=== PATIENT | male | born 1945 | race Caucasian/White ===

== ENCOUNTER 2020-07-15 10:02 | Emergency (ER) | payer OTHER ==
[2020-07-15 10:27] VITALS: TEMP 98; BMI 34.8
--- NOTE | 2020-07-15 10:36 | PDOC ---
History of Present Illness <Dianna Aguayo - Last Filed: 07/15/20 13:39> - History of Present Illness Initial Comments: 07/15/20 10:33 75 M with hx of HTN, DM , CKD stage 3, angioplasty 2014 presented for right shoulder pain s/p fall. Patient walked with a cane. This morning, he fell down on his right shoulder believing the sockets are out of place. Denied head hitting, LOC, neck pain, change of sensation. He currently complained of right shoulder pain, sharp. Didn't take any pain meds. PMHX: as in HPI PSHX: see above Meds: Allergies: none Tob:none Etoh: none Rec drugs:none PCP: claudia bowman Braze Operator: accident report clerk and son by his side. ROS GENERAL/CONSTITUTIONAL: No fever or chills. No weakness. HEAD, EYES, EARS, NOSE AND THROAT: No change in vision. No ear pain or discharge. No sore throat. CARDIOVASCULAR: No chest pain or shortness of breath RESPIRATORY: No cough, wheezing, or hemoptysis. GASTROINTESTINAL: No nausea, vomiting, diarrhea or constipation. GENITOURINARY: No dysuria, frequency, or change in urination. MUSCULOSKELETAL: Right shoulder pain. No neck or back pain. SKIN: No rash NEUROLOGIC: No headache, vertigo, loss of consciousness, or change in strength/sensation. ENDOCRINE: No increased thirst. No abnormal weight change HEMATOLOGIC/LYMPHATIC: No anemia, easy bleeding, or history of blood clots. ALLERGIC/IMMUNOLOGIC: No hives or skin allergy. PE GENERAL: Awake, alert, and fully oriented, in no acute distress HEAD: No signs of trauma, normocephalic, atraumatic EYES: PERRLA, EOMI, sclera anicteric, conjunctiva clear ENT: Auricles normal inspection, hearing grossly normal, nares patent, oropharynx clear without exudates. Moist mucosa NECK: Normal ROM, supple, no lymphadenopathy, JVD, or masses LUNGS: No distress, speaks full sentences, clear to auscultation bilaterally HEART: Regular rate and rhythm, normal S1 and S2, no murmurs, rubs or gallops, peripheral pulses normal and equal bilaterally. ABDOMEN: Soft, nontender, normoactive bowel sounds. No guarding, no rebound. No masses EXTREMITIES : Normal radial pulses. Right shoulder is out socket. Step off noticed, no erythema. NEUROLOGICAL: Cranial nerves II through XII grossly intact. Normal speech, normal gait, no focal sensorimotor deficits SKIN: Warm, Dry, normal turgor, no rashes or lesions noted 07/15/20 12:49 07/15/20 14:13 <Anselmo Haddad - Last Filed: 07/15/20 14:14> - General Chief Complaint: Injury Stated Complaint: FALL Past History <Dianna Aguayo - Last Filed: 07/15/20 13:39> - Medical History COPD: No Diabetes: Yes Hypercholesterolemia: Yes - Surgical History Cardiac Surgery: Yes (stent x1) - Psycho-Social/Smoking History Smoking History: Never smoked - Substance Abuse Hx (Audit-C & DAST Scrn) In the last yr the pt used illegal drug/Rx for NonMed reason: No Score: Yes response is considered Positive: 0 Screen Result (Positive result requires Nsg. DAST-10): Negative <Anselmo Haddad - Last Filed: 07/15/20 14:14> - Medical History Allergies/Adverse Reactions: Allergies Allergy/AdvReac Type Severity Reaction Status Date / Time No Known Allergies Allergy Verified 07/15/20 10:13 Home Medications: Ambulatory Orders Atorvastatin Calcium 40 mg PO HS 07/15/20 Glyburide/Metformin HCl [Glyburide-Metformin 5-500 mg] 1 each PO ASDIR 07/15/20 Ramipril [Altace] 5 mg PO DAILY 07/15/20 *Physical Exam - Vital Signs Last Vital Signs Temp Pulse Resp BP Pulse Ox 98 F 67 15 145/74 100 07/15/20 10:05 07/15/20 13:01 07/15/20 13:01 07/15/20 13:01 07/15/20 13:01 <Dianna Aguayo - Last Filed: 07/15/20 13:39> - Vital Signs Last Vital Signs Temp Pulse Resp BP Pulse Ox 98 F 70 18 139/65 100 07/15/20 10:05 07/15/20 10:05 07/15/20 10:05 07/15/20 10:05 07/15/20 10:05 <Anselmo Haddad - Last Filed: 07/15/20 14:14> Procedures - Joint Reduction Right Joint Reduction Site: right: Anterior Dislocation Pre-Procedure NV Exam: normal Conscious Sedation: Yes Reduction Attempts: 1 Procedure: Traction Counter Traction Post-Procedure NV Exam: normal Complications: No Splint: Yes Immobilized: No <Anselmo Haddad - Last Filed: 07/15/20 14:14> ED Treatment Course - Medications Given in the ED: ED Medications Discontinued Medications Generic Name Dose Route Start Last Admin Trade Name Randy PRN Reason Stop Dose Admin Ketamine HCl 150 mg 07/15/20 12:34 07/15/20 12:15 Ketalar - IVPUSH 07/15/20 12:35 150 mg ONCE ONE Administration <Dianna Aguayo - Last Filed: 07/15/20 13:39> Medical Decision Making - Medical Decision Making 07/15/20 12:57 75 M with HTN, DM, CKD stage 3 presented here for right shoulder dislocation s/p fall. three view of xray on the shoulders was ordered, however, 2 views was obtained. Xray showed deformed shoulder with comminuted clavicle fracture with no widened AC/ elevated hummerus. Consulted ORtho. Go ahead with reduction. F/u on Friday. Conscious sedation paper is obtained. Used 150mg ketamine. Conscious sedation is done with no complication . Reduction is done with one attempt. Xray is reshooted. sling is put. Called Dr. Hughes and updated. Patient is safe to d/c and follow up with ortho. 07/15/20 12:58 07/15/20 13:06 <Anselmo Haddad - Last Filed: 07/15/20 14:14> Discharge <OlivierDianna - Last Filed: 07/15/20 13:39> - Discharge Information Problems reviewed: Yes <Anselmo Haddad - Last Filed: 07/15/20 14:14> - Discharge Information Condition: Improved Disposition: HOME - Follow up/Referral Referrals: Claudia Paulino MD [Primary Care Provider] - Manjinder Aponte MD [Staff Physician] - Juan Quinn MD [Staff Physician] - - Patient Discharge Instructions Patient Printed Discharge Instructions: DI for Shoulder Dislocation, DI for AC Joint Separation Additional Instructions: Discharge Instructions: You were seen in the emergency department for an injury to your shoulder. You were found to have a dislocation of your shoulder as well as a broken clavicle (collar bone). Your shoulder was reduced (put back in place) in the emergency department. You had a sling placed to help the shoulder heal. Home Care: - You will most likely have pain, swelling and bruising for at least the next few weeks. These should improve over time. - Keep your sling in place - Keep the sling dry. You may cover the sling with a plastic bag, rubber band over the end, to shower. - Apply ice as much as possible for the next 2-3 days. This will help reduce pain and swelling. - Use ibuprofen (Advil or Motrin) 400mg or acetaminophen (Tylenol) 650-1000mg every 6 hours as needed for pain. These may be alternated every 3 hours if needed for severe pain. - If your arm or hand become swollen or feel numb, return to the ED. Follow Up: - You need to follow up with orthopedics within the next 7 days for evaluation of your fracture and dislocation. You have been given contact information for Dr Aponte or Dr Quinn. Call as soon as possible to schedule an appointment. - Seek immediate care if you have severe pain, your hand/arm become numb, your fingers are cold or blue, you have severe swelling or redness, or you have any other medical emergency.
--- NOTE | 2020-07-15 11:23 | PDOC ---
Documentation entered by Suly Harvey SCRIBE, acting as scribe for Magalis Schwarz MD. Magalis Schwarz MD: This documentation has been prepared by the Candice billingsley Brenda, SCRIBE, under my direction and personally reviewed by me in its entirety. I confirm that the documentation accurately reflects all work, treatment, procedures, and medical decision making performed by me. Attending Attestation - Resident Resident Name: Anselmo Haddad - ED Attending Attestation I have performed the following: I have examined & evaluated the patient, The case was reviewed & discussed with the resident, I agree w/resident's findings & plan, Exceptions are as noted - HPI HPI: 07/15/20 11:02 The patient is a 75 year old male with a significant PMH of HTN, DM and Angioplasty (2014) who presents to the ED for evaluation of right shoulder pain s/p mechanical fall off his couch. He notes that upon fall he injured his right shoulder, stating that it feels out of its' socket. States that this just happened. Patient walks with a cane at baseline. The patient denies LOC or head trauma. Denies any numbness/tingling or changes in sensation. Allergies: NKA PCP: Susan Paulino - Physicial Exam PE: 07/15/20 11:07 GENERAL: nontoxic-appearing, a bit uncomfortable, A/Ox4, no distress, answers questions appropriately, non-Romanian speaking primarily and son is present to assist translation HEENT: PERRLA, EOMI, moist mucous membranes NECK/BACK: no midline ttp, no spinal stepoff or deformity, no hematoma, full ROM, neck supple CARDIOVASCULAR: regular rate/rhythm, no MGR, strong peripheral pulses, capillary refill <2 seconds, extremities wwp, no edema LUNGS/RESPIRATORY: no respiratory distress, CTAB GI/ABDOMEN: symmetric blld-sy-[id number], normoactive BS, soft, no ttp, no midline pulsatile masses : no CVA tenderness MSK/EXTREMITIES: right shoulder deformity, RUE held in adduction and internal rotation and is in field sling, no muscle atrophy, no acute deformity, distal cap refill <2 seconds and radial and ulnar pulses 2+ and sensation/motor intact. No numbness overlying deltoid. SKIN: warm and dry, no pallor, no jaundice, no rash, no pathologic-appearing bruising, no skin breakdown, no cuts, no lesions NEUROLOGICAL: GCS 15, CN II-XII grossly intact, 5/5 strength proximally and distally, no facial droop - Medical Decision Making 75YOM with fall from cough p/w right shoulder deformity. Initial Vital Signs Temp Pulse Resp BP Pulse Ox 98 F 70 18 139/65 100 07/15/20 10:05 07/15/20 10:05 07/15/20 10:05 07/15/20 10:05 07/15/20 10:05 Most likely anterior shoulder dislocation, possible fracture as well. Unlikely to be simple soft tissue injury or muscle strain/sprain given the clinical deformity. Unlikely simple AC separation although this may be present. Provider Orders Category Date Time Status Acetaminophen [Tylenol -] Medication 07/15/20 13:40 Discontinued 975 mg PO ONCE ONE Ketamine HCl [Ketalar -] Medication 07/15/20 12:34 Discontinued 150 mg IVPUSH ONCE ONE Ondansetron Injection [Zofran Injection] Medication 07/15/20 13:50 Discontinued 4 mg IVPUSH ONCE ONE SHOULDER-RIGHT [RAD] Stat Radiology 07/15/20 10:36 Completed SHOULDER-RIGHT [RAD] Stat Radiology 07/15/20 12:25 Completed Reminder: new phy cons See Order Reminders 07/15/20 11:28 Ordered Medications Discontinued Medications Generic Name Dose Route Start Last Admin Trade Name Freq PRN Reason Stop Dose Admin Acetaminophen 975 mg 07/15/20 13:40 07/15/20 13:49 Tylenol - PO 07/15/20 13:41 975 mg ONCE ONE Administration Ketamine HCl 150 mg 07/15/20 12:34 07/15/20 12:15 Ketalar - IVPUSH 07/15/20 12:35 150 mg ONCE ONE Administration Ondansetron HCl 4 mg 07/15/20 13:50 07/15/20 13:53 Zofran Injection IVPUSH 07/15/20 13:51 4 mg ONCE ONE Administration RAD/SHOULDER-RIGHT Right shoulder: Fall. Pain. 2 views of the right shoulder reveal a deformed shoulder with comminuted distal right clavicular fracture, no sign of widening of the AC joint and elevated humeral head which may indicate a rotator cuff injury. Further imaging with CT may be of help along with orthopedic consultation. On phone consult with Ortho, resident Dr. Haddad discusses the case and imaging findings and Ortho advises reduction despite the clavicle fxr, and f/u in clinic as outpatient if good result achieved. The patient's right shoulder is reduced with puisztic-rptigqbzpnbpede-duvmziyv rotation after 150 mg IV push Ketamine conscious sedation, which the patient tolerated very well. He is subsequently placed in a sling, is neurovascularly intact with 2+ radial and ulnar pulses and no numbness to any portion of the RUE or shoulder. RAD/SHOULDER-RIGHT ADDENDUM ADDENDUM #1 There are arthritic changes present. ORIGINAL REPORT Right shoulder: Post reduction 2 views of the right shoulder have been submitted. The humerus appears in better alignment with the glenoid. Again noted is the comminuted distal clavicular fracture. Orthopedic follow-up needed. Reported By: Vincent Reza MD 07/15/20 1323 Right shoulder: Post reduction 2 views of the right shoulder have been submitted. The humerus appears in better alignment with the glenoid. Again noted is the comminuted distal clavicular fracture. Orthopedic follow-up needed. The patient is observed for >1 hour after returning to baseline from ketamine. He did have some nausea/NBNB vomiting subsequently but was given Zofran with good result. He is appropriate for discharge home with close outpatient follow- up. Is given ortho referral information and we do have a discussion with the patient and his son about the importance of keeping the sling on and following up with both Ortho and PCP in the next 2 days. Specific return precautions are discussed. Last Vital Signs Temp Pulse Resp BP Pulse Ox 98 F 64 18 139/69 100 07/15/20 10:05 07/15/20 13:55 07/15/20 13:55 07/15/20 13:55 07/15/20 13:55 Discharge - Discharge Information Problems reviewed: Yes Clinical Impression/Diagnosis: Shoulder dislocation Qualifiers: Encounter type: initial encounter Laterality: right Qualified Code(s): S43.004A - Unspecified dislocation of right shoulder joint, initial encounter Condition: Improved Disposition: HOME - Admission No - Follow up/Referral Referrals: Susan Paulino MD [Primary Care Provider] - Manjinder Aponte MD [Staff Physician] - Juan Quinn MD [Staff Physician] - - Patient Discharge Instructions Patient Printed Discharge Instructions: DI for Shoulder Dislocation, DI for AC Joint Separation Additional Instructions: Discharge Instructions: You were seen in the emergency department for an injury to your shoulder. You were found to have a dislocation of your shoulder as well as a broken clavicle (collar bone). Your shoulder was reduced (put back in place) in the emergency department. You had a sling placed to help the shoulder heal. Home Care: - You will most likely have pain, swelling and bruising for at least the next few weeks. These should improve over time. - Keep your sling in place - Keep the sling dry. You may cover the sling with a plastic bag, rubber band over the end, to shower. - Apply ice as much as possible for the next 2-3 days. This will help reduce pain and swelling. - Use ibuprofen (Advil or Motrin) 400mg or acetaminophen (Tylenol) 650-1000mg every 6 hours as needed for pain. These may be alternated every 3 hours if needed for severe pain. - If your arm or hand become swollen or feel numb, return to the ED. Follow Up: - You need to follow up with orthopedics within the next 7 days for evaluation of your fracture and dislocation. You have been given contact information for Dr Aponte or Dr Quinn. Call as soon as possible to schedule an appointment. - Seek immediate care if you have severe pain, your hand/arm become numb, your fingers are cold or blue, you have severe swelling or redness, or you have any other medical emergency. - Post Discharge Activity
[2020-07-15] MEDS ORDERED: KETAMINE HCL 200 MG/20 ML VIAL IVPUSH ONE (12:34)
[2020-07-15] MEDS ORDERED: ACETAMINOPHEN 325 MG TABLET (FP) PO ONE (13:40)
[2020-07-15] MEDS ORDERED: ONDANSETRON 4 MG/2 ML VIAL IVPUSH ONE (13:50)
[2020-07-15 15:23] VITALS: BP 139/69; PULSE 64
== END 2020-07-15 14:25 | disposition home or self-care (01) ==
LOC: SUPCPDRO 10:02 → JER 10:02
PROC: 0RSJXZZ Reposition Right Shoulder Joint, External Approach (ICD-10-PCS; principal; 2020-07-15)
PROC: 3E033GC Introduction of Other Therapeutic Substance into Peripheral Vein, Percutaneous Approach (ICD-10-PCS; 2020-07-15)
DX: S43.004A Unspecified dislocation of right shoulder joint, initial encounter (principal)
CPT/HCPCS: 73030-TC-RT-FY; 99284-25

== ENCOUNTER 2020-12-05 00:59 | Emergency (ER) | payer OTHER ==
[2020-12-05 01:20] VITALS: BMI 26.4
[2020-12-05 04:24] LABS: POTASSIUM 4.4 mmol/L (3.5-5.1)
[2020-12-05 04:24] LABS: EPI CELLS 3 /uL (0-25.1); HYALINE CASTS 4 /uL (0-3.1); URINE APPEARANCE CLOUDY; URINE BACTERIA 3421 /uL (0-1359); URINE BILIRUBIN NEGATIVE (NEGATIVE); URINE COLOR YELLOW; URINE GLUCOSE (UA) NEGATIVE (NEGATIVE); URINE KETONE NEGATIVE (NEGATIVE); URINE LEUK ESTERASE 3+ (NEGATIVE); URINE NITRITE NEGATIVE (NEGATIVE); URINE PROTEIN NEGATIVE (NEGATIVE); URINE RBC 44 /uL (0-23.9); URINE UROBILINOGEN 0.2 mg/dL (0.2-1.0); URINE WBC 549 /uL (0-25.8)
[2020-12-05 04:26] LABS: CALCIUM 9.3 mg/dL (8.5-10.1)
[2020-12-05 04:27] LABS: ALBUMIN 3.7 g/dl (3.4-5.0); BLOOD UREA NITROGEN 22.7 mg/dL (7-18)
[2020-12-05 04:30] LABS: CREATININE 1.2 mg/dL (0.55-1.3)
[2020-12-05 04:32] LABS: BILIRUBIN,TOTAL 0.5 mg/dL (0.2-1); TOT PROT 7.4 g/dl (6.4-8.2)
[2020-12-05 08:23] LABS: HEMATOCRIT 35.2 % (35.4-49); HEMOGLOBIN 11.7 GM/dL (11.7-16.9); MCH 26.2 pg (25.7-33.7); MCHC 33.2 g/dl (32.0-35.9); MEAN CELL VOLUME 78.8 fl (80-96); MEAN PLT VOLUME 9.4 fl (7.5-11.1); NEUT % 68.5 % (42.8-82.8); PLATELET COUNT 201 K/MM3 (134-434); RBC 4.46 M/mm3 (4.00-5.60); RDW 14.8 % (11.9-15.9); WHITE BLOOD COUNT 10.8 K/mm3 (4.0-10.0)
[2020-12-05 08:24] LABS: BASO % 1.1 % (0-2.0); EOS % 1.6 % (0-4.5); LYMPH % 21.6 % (8-40); MONO % 7.2 % (3.8-10.2)
[2020-12-05 12:24] VITALS: BP 123/67; PULSE 68; TEMP 98.5
== END 2020-12-05 13:52 | disposition home or self-care (01) ==
LOC: JER 00:59
DX: N30.01 Acute cystitis with hematuria (principal)
CPT/HCPCS: 36415; 80053; 81003; 85025; 87086; 87186; 99283-25

== ENCOUNTER 2022-04-25 22:38 | Emergency (ER) | payer OTHER ==
[2022-04-25 22:43] VITALS: BMI 24.3
[2022-04-26 03:53] LABS: EPI CELLS >36 /uL (0-25.1); HYALINE CASTS 3 /uL (0-3.1); PH,URINE 8.5 (5.0-8.0); URINE APPEARANCE CLOUDY; URINE BACTERIA 8156 /uL (0-1359); URINE BILIRUBIN NEGATIVE (NEGATIVE); URINE COLOR YELLOW; URINE GLUCOSE (UA) NEGATIVE (NEGATIVE); URINE KETONE NEGATIVE (NEGATIVE); URINE LEUK ESTERASE 3+ (NEGATIVE); URINE NITRITE POSITIVE (NEGATIVE); URINE PROTEIN 1+ (NEGATIVE); URINE RBC 4 /uL (0-23.9); URINE UROBILINOGEN 0.2 mg/dL (0.2-1.0); URINE WBC 58 /uL (0-25.8)
[2022-04-26] MEDS ORDERED: CEFTRIAXONE 1 GM in DEXTROSE 5%-WATER - 100 ML IVPB ONE (04:05)
[2022-04-26] MEDS ORDERED: CEFTRIAXONE 1 GM/50 ML BAG ONE (04:43)
[2022-04-26 05:14] LABS: BASO % 0.3 % (0-2.0); EOS % 0.5 % (0-4.5); HEMOGLOBIN 12.9 GM/dL (11.7-16.9); LYMPH % 15.6 % (8-40); MCH 26.1 pg (25.7-33.7); MCHC 33.1 g/dl (32.0-35.9); MEAN CELL VOLUME 78.9 fl (80-96); MEAN PLT VOLUME 8.6 fl (7.5-11.1); NEUT % 78.6 % (42.8-82.8); PLATELET COUNT 229 10^3/uL (134-434); RBC 4.94 M/mm3 (4.00-5.60); RDW 14.6 % (11.9-15.9); WHITE BLOOD COUNT 11.9 K/mm3 (4.0-10.0)
[2022-04-26 05:45] LABS: ALBUMIN 4.2 g/dl (3.4-5.0); BLOOD UREA NITROGEN 18.7 mg/dL (7-18); CALCIUM 9.6 mg/dL (8.5-10.1)
[2022-04-26 05:48] LABS: CREATININE 1.1 mg/dL (0.55-1.3)
[2022-04-26 05:50] LABS: BILIRUBIN,TOTAL 0.8 mg/dL (0.2-1); TOT PROT 8.2 g/dl (6.4-8.2)
[2022-04-26 05:56] VITALS: BP 135/70; PULSE 78; TEMP 98.6
[2022-04-26 07:42] LABS: URINE CRYSTALS MANY /hpf
== END 2022-04-26 10:16 | disposition home or self-care (01) ==
LOC: JER 22:38
PROC: 3E033GC Introduction of Other Therapeutic Substance into Peripheral Vein, Percutaneous Approach (ICD-10-PCS; principal; 2022-04-25)
DX: R33.9 Retention of urine, unspecified (principal)
CPT/HCPCS: 36415; 80053; 81003; 85025; 87086; 87186; 96365; 99284-25

== ENCOUNTER 2022-04-29 19:38 | Inpatient (IN) | payer OTHER ==
[2022-04-29 22:20] LABS: EOS % 3.9 % (0-4.5); HEMATOCRIT 37.2 % (35.4-49); HEMOGLOBIN 12.2 GM/dL (11.7-16.9); LYMPH % 33.5 % (8-40); MCH 26.3 pg (25.7-33.7); MCHC 32.7 g/dl (32.0-35.9); MEAN CELL VOLUME 80.3 fl (80-96); MEAN PLT VOLUME 8.5 fl (7.5-11.1); MONO % 5.4 % (3.8-10.2); NEUT % 56.2 % (42.8-82.8); PLATELET COUNT 247 10^3/uL (134-434); RBC 4.63 M/mm3 (4.00-5.60); RDW 14.4 % (11.9-15.9); WHITE BLOOD COUNT 8.6 K/mm3 (4.0-10.0)
[2022-04-29 23:42] LABS: EPI CELLS 8 /uL (0-25.1); HYALINE CASTS 1 /uL (0-3.1); PH,URINE 5.5 (5.0-8.0); URINE APPEARANCE CLEAR; URINE BACTERIA 79 /uL (0-1359); URINE BILIRUBIN NEGATIVE (NEGATIVE); URINE COLOR YELLOW; URINE GLUCOSE (UA) NEGATIVE (NEGATIVE); URINE KETONE NEGATIVE (NEGATIVE); URINE LEUK ESTERASE 1+ (NEGATIVE); URINE NITRITE NEGATIVE (NEGATIVE); URINE PROTEIN NEGATIVE (NEGATIVE); URINE RBC 5 /uL (0-23.9); URINE UROBILINOGEN 0.2 mg/dL (0.2-1.0); URINE WBC 51 /uL (0-25.8)
[2022-04-29 23:51] LABS: ALBUMIN 3.9 g/dl (3.4-5.0)
[2022-04-29 23:54] LABS: CREATININE 1.2 mg/dL (0.55-1.3)
[2022-04-29 23:55] LABS: BILIRUBIN,TOTAL 0.5 mg/dL (0.2-1); TOT PROT 7.6 g/dl (6.4-8.2)
[2022-04-29 23:57] LABS: BLOOD UREA NITROGEN 15.3 mg/dL (7-18)
[2022-04-30] MEDS ORDERED: MEROPENEM 1 GM in DEXTROSE 5%-WATER 100 ML IVPB ONE (01:06)
[2022-04-30] MEDS ORDERED: MEROPENEM 1 GM VIAL (RESTRICTED TO ID) IVPB ONE ×2 (02:05→09:10)
[2022-04-30 08:07] LABS: BASO % 0.8 % (0-2.0); EOS % 4.5 % (0-4.5); HEMATOCRIT 37.8 % (35.4-49); HEMOGLOBIN 12.3 GM/dL (11.7-16.9); LYMPH % 33.7 % (8-40); MCH 26.1 pg (25.7-33.7); MCHC 32.5 g/dl (32.0-35.9); MEAN CELL VOLUME 80.5 fl (80-96); MEAN PLT VOLUME 8.4 fl (7.5-11.1); MONO % 8.9 % (3.8-10.2); NEUT % 52.1 % (42.8-82.8); PLATELET COUNT 225 10^3/uL (134-434); RBC 4.69 M/mm3 (4.00-5.60); RDW 14.4 % (11.9-15.9)
[2022-04-30 08:23] LABS: CALCIUM 9.2 mg/dL (8.5-10.1)
[2022-04-30 08:24] LABS: ALBUMIN 3.5 g/dl (3.4-5.0)
[2022-04-30 08:27] LABS: CREATININE 0.9 mg/dL (0.55-1.3)
[2022-04-30 08:29] LABS: BILIRUBIN,TOTAL 0.5 mg/dL (0.2-1)
[2022-04-30] MEDS ORDERED: RAMIPRIL 5 MG CAPSULE ONE (09:10)
[2022-04-30] MEDS: RAMIPRIL 5 MG CAPSULE PO SCH (11:14)
[2022-04-30] MEDS: MEROPENEM 1 GM in DEXTROSE 5%-WATER 100 ML IVPB SCH ×2 (11:14→18:29)
[2022-04-30] MEDS: INSULIN SLIDING SCALE (NOVOLOG) 1 VIAL SQ SCH ×2 (14:14→18:38)
[2022-04-30 21:01] VITALS: BMI 27.6
[2022-04-30] MEDS ORDERED: DEXTROSE 5%-WATER - 50 ML IVPB ONE (21:11)
[2022-04-30] MEDS ORDERED: cefTRIAXone SODIUM 1 GM VIAL ONE (21:11)
[2022-04-30] MEDS: CEFTRIAXONE 1 GM in DEXTROSE 5%-WATER - 50 ML IVPB SCH (21:30)
[2022-04-30] MEDS: ATORVASTATIN CA 40 MG TABLET (FP) PO SCH (21:30)
[2022-05-01] MEDS: INSULIN SLIDING SCALE (NOVOLOG) 1 VIAL SQ SCH ×3 (06:00→16:38)
[2022-05-01 08:32] LABS: BASO % 0.7 % (0-2.0); EOS % 4.3 % (0-4.5); HEMATOCRIT 37.8 % (35.4-49); HEMOGLOBIN 12.4 GM/dL (11.7-16.9); MCH 26.3 pg (25.7-33.7); MCHC 32.9 g/dl (32.0-35.9); MEAN CELL VOLUME 79.9 fl (80-96); MEAN PLT VOLUME 8.3 fl (7.5-11.1); MONO % 6.4 % (3.8-10.2); NEUT % 60.6 % (42.8-82.8); PLATELET COUNT 225 10^3/uL (134-434); RBC 4.73 M/mm3 (4.00-5.60); RDW 14.4 % (11.9-15.9); WHITE BLOOD COUNT 7.5 K/mm3 (4.0-10.0)
[2022-05-01 08:43] LABS: CALCIUM 9.2 mg/dL (8.5-10.1)
[2022-05-01 08:44] LABS: BLOOD UREA NITROGEN 14.5 mg/dL (7-18)
[2022-05-01 08:45] LABS: ALBUMIN 3.4 g/dl (3.4-5.0)
[2022-05-01 08:48] LABS: BILIRUBIN,TOTAL 0.6 mg/dL (0.2-1); TOT PROT 6.9 g/dl (6.4-8.2)
[2022-05-01] MEDS ORDERED: cefTRIAXone SODIUM 1 GM VIAL ONE (09:10)
[2022-05-01] MEDS ORDERED: DEXTROSE 5%-WATER - 50 ML IVPB ONE (09:11)
[2022-05-01] MEDS: ENOXAPARIN NA (PORCINE) 40 MG/0.4 ML DISP.SYRIN SQ SCH (09:33)
[2022-05-01] MEDS: METOPROLOL TARTRATE 25 MG TABLET (FP) PO SCH ×2 (09:33→21:44)
[2022-05-01] MEDS: ASPIRIN 81 MG CHEWABLE TABLETS PO SCH (09:33)
[2022-05-01] MEDS: CEFTRIAXONE 1 GM in DEXTROSE 5%-WATER - 50 ML IVPB SCH (09:34)
[2022-05-01] MEDS ORDERED: MEROPENEM 1 GM in DEXTROSE 5%-WATER 100 ML IVPB SCH (10:00)
[2022-05-01] MEDS: RAMIPRIL 5 MG CAPSULE PO SCH (10:55)
[2022-05-01] MEDS ORDERED: MEROPENEM 1 GM VIAL (RESTRICTED TO ID) IVPB ONE ×2 (11:17→17:10)
[2022-05-01] MEDS ORDERED: DEXTROSE 5%-WATER 100 ML IVPB ONE ×2 (11:18→17:11)
[2022-05-01] MEDS: MEROPENEM 1 GM in DEXTROSE 5%-WATER 100 ML IVPB SCH ×2 (11:23→17:29)
[2022-05-01] MEDS ORDERED: ACETAMINOPHEN 325 MG TABLET (FP) PO PRN (17:01)
[2022-05-01] MEDS ORDERED: POLYETHYLENE GLYCOL (HEALTHYLAX) 3350 17 GM PACKET PO ONE (21:30)
[2022-05-01] MEDS: ATORVASTATIN CA 40 MG TABLET (FP) PO SCH (21:40)
[2022-05-02] MEDS ORDERED: DEXTROSE 5%-WATER 100 ML IVPB ONE ×3 (01:08→14:15)
[2022-05-02] MEDS ORDERED: MEROPENEM 1 GM VIAL (RESTRICTED TO ID) IVPB ONE ×3 (01:08→14:14)
[2022-05-02] MEDS: MEROPENEM 1 GM in DEXTROSE 5%-WATER 100 ML IVPB SCH ×3 (01:28→17:01)
[2022-05-02] MEDS: INSULIN SLIDING SCALE (NOVOLOG) 1 VIAL SQ SCH ×3 (06:50→16:36)
[2022-05-02 09:01] LABS: CALCIUM 9.5 mg/dL (8.5-10.1)
[2022-05-02] MEDS: RAMIPRIL 5 MG CAPSULE PO SCH (09:01)
[2022-05-02] MEDS: ASPIRIN 81 MG CHEWABLE TABLETS PO SCH (09:01)
[2022-05-02] MEDS: ENOXAPARIN NA (PORCINE) 40 MG/0.4 ML DISP.SYRIN SQ SCH (09:01)
[2022-05-02] MEDS: METOPROLOL TARTRATE 25 MG TABLET (FP) PO SCH ×2 (09:01→21:21)
[2022-05-02 09:02] LABS: ALBUMIN 3.6 g/dl (3.4-5.0); BLOOD UREA NITROGEN 16.6 mg/dL (7-18)
[2022-05-02 09:05] LABS: CREATININE 0.9 mg/dL (0.55-1.3)
[2022-05-02 09:06] LABS: BILIRUBIN,TOTAL 0.4 mg/dL (0.2-1); TOT PROT 7.3 g/dl (6.4-8.2)
[2022-05-02 10:24] LABS: BASO % 0.8 % (0-2.0); EOS % 3.1 % (0-4.5); HEMATOCRIT 39.7 % (35.4-49); HEMOGLOBIN 12.8 GM/dL (11.7-16.9); LYMPH % 37.9 % (8-40); MCH 26.1 pg (25.7-33.7); MCHC 32.3 g/dl (32.0-35.9); MEAN PLT VOLUME 8.3 fl (7.5-11.1); MONO % 9.4 % (3.8-10.2); NEUT % 48.8 % (42.8-82.8); PLATELET COUNT 245 10^3/uL (134-434); RDW 14.5 % (11.9-15.9); WHITE BLOOD COUNT 9.7 K/mm3 (4.0-10.0)
[2022-05-02] MEDS: ATORVASTATIN CA 40 MG TABLET (FP) PO SCH (21:21)
[2022-05-03] MEDS ORDERED: DEXTROSE 5%-WATER 100 ML IVPB ONE ×3 (01:07→16:49)
[2022-05-03] MEDS ORDERED: MEROPENEM 1 GM VIAL (RESTRICTED TO ID) IVPB ONE ×3 (01:07→16:49)
[2022-05-03] MEDS: MEROPENEM 1 GM in DEXTROSE 5%-WATER 100 ML IVPB SCH ×3 (01:31→16:59)
[2022-05-03] MEDS: INSULIN SLIDING SCALE (NOVOLOG) 1 VIAL SQ SCH ×3 (06:12→16:59)
[2022-05-03] MEDS: ENOXAPARIN NA (PORCINE) 40 MG/0.4 ML DISP.SYRIN SQ SCH (09:33)
[2022-05-03] MEDS: RAMIPRIL 5 MG CAPSULE PO SCH (11:19)
[2022-05-03] MEDS: METOPROLOL TARTRATE 25 MG TABLET (FP) PO SCH ×2 (11:20→23:15)
[2022-05-03] MEDS: ASPIRIN 81 MG CHEWABLE TABLETS PO SCH (11:21)
[2022-05-03] MEDS: ATORVASTATIN CA 40 MG TABLET (FP) PO SCH (23:15)
[2022-05-04] MEDS ORDERED: MEROPENEM 1 GM VIAL (RESTRICTED TO ID) IVPB ONE ×2 (01:06→09:21)
[2022-05-04] MEDS ORDERED: DEXTROSE 5%-WATER 100 ML IVPB ONE ×2 (01:06→09:21)
[2022-05-04] MEDS: MEROPENEM 1 GM in DEXTROSE 5%-WATER 100 ML IVPB SCH ×2 (01:10→09:29)
[2022-05-04] MEDS: INSULIN SLIDING SCALE (NOVOLOG) 1 VIAL SQ SCH ×3 (06:08→16:48)
[2022-05-04] MEDS: ENOXAPARIN NA (PORCINE) 40 MG/0.4 ML DISP.SYRIN SQ SCH (09:29)
[2022-05-04] MEDS: ASPIRIN 81 MG CHEWABLE TABLETS PO SCH (09:30)
[2022-05-04] MEDS: RAMIPRIL 5 MG CAPSULE PO SCH (09:30)
[2022-05-04] MEDS: METOPROLOL TARTRATE 25 MG TABLET (FP) PO SCH ×2 (09:30→21:16)
[2022-05-04] MEDS: POLYETHYLENE GLYCOL (HEALTHYLAX) 3350 17 GM PACKET PO SCH (15:25)
[2022-05-04] MEDS: ATORVASTATIN CA 40 MG TABLET (FP) PO SCH (21:16)
[2022-05-05 06:14] VITALS: RESP 18
[2022-05-05] MEDS: INSULIN SLIDING SCALE (NOVOLOG) 1 VIAL SQ SCH ×2 (07:03→11:18)
[2022-05-05 08:36] VITALS: BP 122/61; PULSE 61; TEMP 98.3
[2022-05-05] MEDS: ENOXAPARIN NA (PORCINE) 40 MG/0.4 ML DISP.SYRIN SQ SCH (09:56)
[2022-05-05] MEDS: POLYETHYLENE GLYCOL (HEALTHYLAX) 3350 17 GM PACKET PO SCH (09:56)
[2022-05-05] MEDS: METOPROLOL TARTRATE 25 MG TABLET (FP) PO SCH (09:57)
[2022-05-05] MEDS: RAMIPRIL 5 MG CAPSULE PO SCH (09:57)
[2022-05-05] MEDS: ASPIRIN 81 MG CHEWABLE TABLETS PO SCH (09:57)
== END 2022-05-05 14:35 | disposition home health service (06) | DRG 690 ==
LOC: JER 19:38 → JERBED 21:34 → J7W 04-30 18:17
PROVIDERS: ADMIT Internal Medicine; ATTEND Internal Medicine
DX: N39.0 Urinary tract infection, site not specified (principal); B96.20 Unspecified Escherichia coli [E. coli] as the cause of diseases classified elsewhere; E78.5 Hyperlipidemia, unspecified; I25.10 Atherosclerotic heart disease of native coronary artery without angina pectoris; F03.90 Unspecified dementia, unspecified severity, without behavioral disturbance, psychotic disturbance, mood disturbance, and anxiety; E11.9 Type 2 diabetes mellitus without complications; I10 Essential (primary) hypertension; Z98.61 Coronary angioplasty status; N40.0 Benign prostatic hyperplasia without lower urinary tract symptoms
CPT/HCPCS: 36415; 80053; 81003; 82962; 83036; 85025; 87086; 93005; 93010; 99285-25; C9803-CS; U0003; U0005

== ENCOUNTER 2022-11-12 18:40 | Emergency (ER) | payer OTHER ==
[2022-11-12 19:14] VITALS: BP 155/74; PULSE 76; RESP 18; TEMP 98.1; BMI 27.6
[2022-11-12 22:43] LABS: EPI CELLS 21 /uL (0-25.1); HYALINE CASTS 2 /uL (0-3.1); URINE APPEARANCE CLOUDY; URINE BACTERIA >9,000 /uL (0-1359); URINE BILIRUBIN NEGATIVE (NEGATIVE); URINE COLOR YELLOW; URINE GLUCOSE (UA) TRACE (NEGATIVE); URINE KETONE NEGATIVE (NEGATIVE); URINE LEUK ESTERASE 3+ (NEGATIVE); URINE NITRITE POSITIVE (NEGATIVE); URINE PROTEIN 1+ (NEGATIVE); URINE RBC 50 /uL (0-23.9); URINE UROBILINOGEN 0.2 mg/dL (0.2-1.0); URINE WBC 1416 /uL (0-25.8)
== END 2022-11-12 22:46 | disposition home or self-care (01) ==
LOC: JER 18:40
DX: T83.198A Other mechanical complication of other urinary devices and implants, initial encounter (principal)
CPT/HCPCS: 81003; 87086; 87186; 99283-25

== ENCOUNTER 2023-02-07 21:14 | Inpatient (IN) | payer OTHER ==
[2023-02-07 21:24] VITALS: BMI 25.7
[2023-02-07] MEDS ORDERED: morphine CARPU-JECT 4 MG/1 ML DISP.SYRIN IVPUSH ONE (22:33)
[2023-02-07 22:46] LABS: BASO % 0.8 % (0-2.0); EOS % 2.8 % (0-4.5); HEMATOCRIT 35.6 % (35.4-49); LYMPH % 23.6 % (8-40); MCH 26.4 pg (25.7-33.7); MCHC 33.6 g/dl (32.0-35.9); MEAN CELL VOLUME 78.4 fl (80-96); MEAN PLT VOLUME 7.8 fl (7.5-11.1); MONO % 6.6 % (3.8-10.2); NEUT % 66.2 % (42.8-82.8); PLATELET COUNT 248 10^3/uL (134-434); RBC 4.54 M/mm3 (4.00-5.60); RDW 14.4 % (11.9-15.9); WHITE BLOOD COUNT 10.4 K/mm3 (4.0-10.0)
[2023-02-07] MEDS ORDERED: morphine SULFATE 4 MG/ML VIAL ONE (22:57)
[2023-02-07 23:12] LABS: POTASSIUM 3.9 mmol/L (3.5-5.1)
[2023-02-07 23:14] LABS: CALCIUM 8.9 mg/dL (8.5-10.1)
[2023-02-07 23:15] LABS: ALBUMIN 3.4 g/dl (3.4-5.0); BLOOD UREA NITROGEN 20.9 mg/dL (7-18)
[2023-02-07 23:18] LABS: CREATININE 1.2 mg/dL (0.55-1.3)
[2023-02-07 23:20] LABS: BILIRUBIN,TOTAL 0.5 mg/dL (0.2-1); TOT PROT 7.1 g/dl (6.4-8.2)
[2023-02-08 00:22] LABS: EPI CELLS 11 /uL (0-25.1); HYALINE CASTS 7 /uL (0-3.1); URINE APPEARANCE TURBID; URINE BACTERIA 4773 /uL (0-1359); URINE BILIRUBIN NEGATIVE (NEGATIVE); URINE COLOR ORANGE; URINE GLUCOSE (UA) 2+ (NEGATIVE); URINE KETONE NEGATIVE (NEGATIVE); URINE LEUK ESTERASE 3+ (NEGATIVE); URINE NITRITE POSITIVE (NEGATIVE); URINE PROTEIN 2+ (NEGATIVE); URINE UROBILINOGEN 0.2 mg/dL (0.2-1.0); URINE WBC 16800 /uL (0-25.8)
[2023-02-08] MEDS ORDERED: PIPERACILLIN/TAZOB 4.5 GM 4.5 GM in DEXTROSE 5%-WATER 100 ML IVPB ONE (01:12)
[2023-02-08] MEDS ORDERED: SODIUM CHLORIDE 0.9% 500 ML INFUS.BAG IV ONE ×2 (01:17→01:41)
[2023-02-08] MEDS ORDERED: PIPERACILLIN/TAZOB 4.5 GM 4.5 GM/100 ML BAG IVPB ONE (01:23)
[2023-02-08] MEDS ORDERED: ACETAMINOPHEN 325 MG TABLET (FP) PO PRN (02:49)
[2023-02-08] MEDS ORDERED: DOCUSATE SODIUM 100 MG CAPSULE (FP) PO PRN (02:49)
[2023-02-08] MEDS: LEVOTHYROXINE NA 25 MCG TABLET (FP) PO SCH ×2 (06:32→09:03)
[2023-02-08] MEDS: PIPERACILLIN/TAZOB 3.375 GM 3.375 GM in DEXTROSE 5%-WATER - 50 ML IVPB SCH ×3 (08:56→22:24)
[2023-02-08 09:47] LABS: URINE RBC 579.8 /uL (0-23.9)
[2023-02-08] MEDS: INSULIN SLIDING SCALE (NOVOLOG) 1 VIAL SQ SCH ×3 (12:15→22:29)
[2023-02-08] MEDS ORDERED: guaiFENesin 200 MG/10 ML 10 ML UNIT-DOSE CUPS PO PRN (18:16)
[2023-02-08] MEDS: ATORVASTATIN CA 40 MG TABLET (FP) PO SCH (22:25)
[2023-02-09] MEDS: PIPERACILLIN/TAZOB 3.375 GM 3.375 GM in DEXTROSE 5%-WATER - 50 ML IVPB SCH ×5 (02:01→18:55)
[2023-02-09] MEDS: INSULIN SLIDING SCALE (NOVOLOG) 1 VIAL SQ SCH ×4 (08:12→23:01)
[2023-02-09] MEDS: ENOXAPARIN NA (PORCINE) 40 MG/0.4 ML DISP.SYRIN SQ SCH (11:01)
[2023-02-09 11:19] LABS: BASO % 0.8 % (0-2.0); EOS % 4.1 % (0-4.5); HEMATOCRIT 33.4 % (35.4-49); HEMOGLOBIN 11.3 GM/dL (11.7-16.9); LYMPH % 23.3 % (8-40); MCH 26.8 pg (25.7-33.7); MCHC 33.8 g/dl (32.0-35.9); MEAN CELL VOLUME 79.2 fl (80-96); MEAN PLT VOLUME 8.4 fl (7.5-11.1); MONO % 7.5 % (3.8-10.2); NEUT % 64.3 % (42.8-82.8); PLATELET COUNT 209 10^3/uL (134-434); RBC 4.22 M/mm3 (4.00-5.60); RDW 14.2 % (11.9-15.9); WHITE BLOOD COUNT 8.2 K/mm3 (4.0-10.0)
[2023-02-09 11:42] LABS: POTASSIUM 4.1 mmol/L (3.5-5.1)
[2023-02-09 11:50] LABS: CALCIUM 9.3 mg/dL (8.5-10.1)
[2023-02-09 11:51] LABS: BLOOD UREA NITROGEN 15.3 mg/dL (7-18); MAGNESIUM 2.2 mg/dL (1.8-2.4)
[2023-02-09 11:54] LABS: CREATININE 1.2 mg/dL (0.55-1.3); PHOSPHOROUS 3.1 mg/dL (2.5-4.9)
[2023-02-09] MEDS ORDERED: PIPERACILLIN/TAZOB 3.375 GM 3.375 GM in DEXTROSE 5%-WATER - 50 ML IVPB SCH (15:00)
[2023-02-09] MEDS ORDERED: POLYETHYLENE GLYCOL (HEALTHYLAX) 3350 17 GM PACKET PO ONE (17:00)
[2023-02-09] MEDS: ATORVASTATIN CA 40 MG TABLET (FP) PO SCH (23:01)
[2023-02-10] MEDS: PIPERACILLIN/TAZOB 3.375 GM 3.375 GM in DEXTROSE 5%-WATER - 50 ML IVPB SCH ×3 (01:48→17:29)
[2023-02-10] MEDS: INSULIN SLIDING SCALE (NOVOLOG) 1 VIAL SQ SCH ×4 (06:46→21:36)
[2023-02-10] MEDS: ENOXAPARIN NA (PORCINE) 40 MG/0.4 ML DISP.SYRIN SQ SCH (10:06)
[2023-02-10 11:45] LABS: HEMATOCRIT 33.9 % (35.4-49); HEMOGLOBIN 11.3 GM/dL (11.7-16.9); LYMPH % 25.5 % (8-40); MCH 26.5 pg (25.7-33.7); MCHC 33.4 g/dl (32.0-35.9); MEAN CELL VOLUME 79.4 fl (80-96); MEAN PLT VOLUME 8.1 fl (7.5-11.1); MONO % 6.7 % (3.8-10.2); NEUT % 62.8 % (42.8-82.8); PLATELET COUNT 232 10^3/uL (134-434); RBC 4.27 M/mm3 (4.00-5.60); RDW 14.2 % (11.9-15.9); WHITE BLOOD COUNT 8.8 K/mm3 (4.0-10.0)
[2023-02-10 12:13] LABS: CALCIUM 9.3 mg/dL (8.5-10.1)
[2023-02-10 12:14] LABS: ALBUMIN 3.1 g/dl (3.4-5.0); BLOOD UREA NITROGEN 15.8 mg/dL (7-18); MAGNESIUM 2.1 mg/dL (1.8-2.4)
[2023-02-10 12:16] LABS: CREATININE 1.1 mg/dL (0.55-1.3)
[2023-02-10 12:18] LABS: BILIRUBIN,TOTAL 0.7 mg/dL (0.2-1); TOT PROT 6.6 g/dl (6.4-8.2)
[2023-02-10] MEDS: ATORVASTATIN CA 40 MG TABLET (FP) PO SCH (21:28)
[2023-02-11] MEDS: PIPERACILLIN/TAZOB 3.375 GM 3.375 GM in DEXTROSE 5%-WATER - 50 ML IVPB SCH ×3 (01:50→17:16)
[2023-02-11] MEDS: INSULIN SLIDING SCALE (NOVOLOG) 1 VIAL SQ SCH ×4 (06:09→21:46)
[2023-02-11 09:22] LABS: BASO % 0.9 % (0-2.0); EOS % 4.9 % (0-4.5); HEMATOCRIT 36.8 % (35.4-49); HEMOGLOBIN 12.3 GM/dL (11.7-16.9); LYMPH % 27.7 % (8-40); MCH 26.6 pg (25.7-33.7); MCHC 33.5 g/dl (32.0-35.9); MEAN CELL VOLUME 79.4 fl (80-96); MEAN PLT VOLUME 8.2 fl (7.5-11.1); MONO % 6.5 % (3.8-10.2); PLATELET COUNT 266 10^3/uL (134-434); RBC 4.64 M/mm3 (4.00-5.60); RDW 14.4 % (11.9-15.9); WHITE BLOOD COUNT 9.1 K/mm3 (4.0-10.0)
[2023-02-11 10:05] LABS: POTASSIUM 4.3 mmol/L (3.5-5.1)
[2023-02-11 10:07] LABS: CALCIUM 9.5 mg/dL (8.5-10.1)
[2023-02-11 10:09] LABS: ALBUMIN 3.4 g/dl (3.4-5.0); BLOOD UREA NITROGEN 14.9 mg/dL (7-18); MAGNESIUM 2.1 mg/dL (1.8-2.4)
[2023-02-11 10:11] LABS: CREATININE 1.2 mg/dL (0.55-1.3)
[2023-02-11 10:13] LABS: BILIRUBIN,TOTAL 0.8 mg/dL (0.2-1); TOT PROT 7.4 g/dl (6.4-8.2)
[2023-02-11] MEDS: ENOXAPARIN NA (PORCINE) 40 MG/0.4 ML DISP.SYRIN SQ SCH (10:53)
[2023-02-11] MEDS ORDERED: INSULIN SLIDING SCALE (NOVOLOG) 1 VIAL SQ ONE (18:02)
[2023-02-11] MEDS: ATORVASTATIN CA 40 MG TABLET (FP) PO SCH (21:43)
[2023-02-12] MEDS: PIPERACILLIN/TAZOB 3.375 GM 3.375 GM in DEXTROSE 5%-WATER - 50 ML IVPB SCH ×3 (01:08→17:51)
[2023-02-12] MEDS: INSULIN SLIDING SCALE (NOVOLOG) 1 VIAL SQ SCH ×4 (06:15→21:57)
[2023-02-12 08:06] LABS: BASO % 0.7 % (0-2.0); EOS % 5.4 % (0-4.5); HEMATOCRIT 34.3 % (35.4-49); HEMOGLOBIN 11.7 GM/dL (11.7-16.9); LYMPH % 28.7 % (8-40); MCH 26.8 pg (25.7-33.7); MCHC 34.3 g/dl (32.0-35.9); MEAN CELL VOLUME 78.3 fl (80-96); MEAN PLT VOLUME 8.5 fl (7.5-11.1); MONO % 6.6 % (3.8-10.2); NEUT % 58.6 % (42.8-82.8); PLATELET COUNT 262 10^3/uL (134-434); RBC 4.38 M/mm3 (4.00-5.60); WHITE BLOOD COUNT 8.8 K/mm3 (4.0-10.0)
[2023-02-12 08:40] LABS: POTASSIUM 4.1 mmol/L (3.5-5.1)
[2023-02-12 08:47] LABS: ALBUMIN 3.3 g/dl (3.4-5.0); BLOOD UREA NITROGEN 16.3 mg/dL (7-18); CALCIUM 9.4 mg/dL (8.5-10.1)
[2023-02-12 08:48] LABS: MAGNESIUM 2.2 mg/dL (1.8-2.4)
[2023-02-12 08:51] LABS: CREATININE 1.3 mg/dL (0.55-1.3)
[2023-02-12 08:53] LABS: BILIRUBIN,TOTAL 0.8 mg/dL (0.2-1)
[2023-02-12] MEDS: ENOXAPARIN NA (PORCINE) 40 MG/0.4 ML DISP.SYRIN SQ SCH (09:59)
[2023-02-12] MEDS: ATORVASTATIN CA 40 MG TABLET (FP) PO SCH (21:57)
[2023-02-13] MEDS: PIPERACILLIN/TAZOB 3.375 GM 3.375 GM in DEXTROSE 5%-WATER - 50 ML IVPB SCH ×2 (01:05→09:07)
[2023-02-13] MEDS: INSULIN SLIDING SCALE (NOVOLOG) 1 VIAL SQ SCH ×4 (06:06→21:44)
[2023-02-13 06:24] VITALS: RESP 18
[2023-02-13 08:31] LABS: BASO % 0.7 % (0-2.0); EOS % 4.8 % (0-4.5); HEMATOCRIT 34.3 % (35.4-49); HEMOGLOBIN 11.7 GM/dL (11.7-16.9); LYMPH % 25.9 % (8-40); MCH 26.9 pg (25.7-33.7); MEAN CELL VOLUME 79.1 fl (80-96); MEAN PLT VOLUME 8.4 fl (7.5-11.1); MONO % 6.9 % (3.8-10.2); NEUT % 61.7 % (42.8-82.8); PLATELET COUNT 235 10^3/uL (134-434); RBC 4.34 M/mm3 (4.00-5.60); RDW 14.2 % (11.9-15.9); WHITE BLOOD COUNT 8.3 K/mm3 (4.0-10.0)
[2023-02-13 08:47] LABS: CALCIUM 9.5 mg/dL (8.5-10.1)
[2023-02-13 08:48] LABS: ALBUMIN 3.2 g/dl (3.4-5.0)
[2023-02-13 08:51] LABS: CREATININE 1.3 mg/dL (0.55-1.3)
[2023-02-13 08:52] LABS: BILIRUBIN,TOTAL 0.9 mg/dL (0.2-1); TOT PROT 6.9 g/dl (6.4-8.2)
[2023-02-13] MEDS: ENOXAPARIN NA (PORCINE) 40 MG/0.4 ML DISP.SYRIN SQ SCH (09:07)
[2023-02-13] MEDS: ATORVASTATIN CA 40 MG TABLET (FP) PO SCH (21:46)
[2023-02-14] MEDS: INSULIN SLIDING SCALE (NOVOLOG) 1 VIAL SQ SCH ×3 (06:10→16:40)
[2023-02-14] MEDS: ENOXAPARIN NA (PORCINE) 40 MG/0.4 ML DISP.SYRIN SQ SCH (10:00)
[2023-02-14 14:47] VITALS: BP 113/49; PULSE 83; TEMP 98.3
== END 2023-02-14 18:08 | disposition home health service (06) | DRG 699 ==
LOC: JER 21:14 → JERBED 02-08 01:47 → J5S 02-08 04:34 → OBSVTOIN 02-11 14:51
PROVIDERS: ADMIT Internal Medicine; ATTEND Internal Medicine
DX: T83.518A Infection and inflammatory reaction due to other urinary catheter, initial encounter (principal); N39.0 Urinary tract infection, site not specified; I25.10 Atherosclerotic heart disease of native coronary artery without angina pectoris; I10 Essential (primary) hypertension; E11.9 Type 2 diabetes mellitus without complications; E03.9 Hypothyroidism, unspecified; N40.1 Benign prostatic hyperplasia with lower urinary tract symptoms; R33.8 Other retention of urine; E78.5 Hyperlipidemia, unspecified; Y84.8 Other medical procedures as the cause of abnormal reaction of the patient, or of later complication, without mention of misadventure at the time of the procedure; Z95.5 Presence of coronary angioplasty implant and graft
CPT/HCPCS: 0241U-QW; 36415; 71045-TC-FY; 76775-TC; 76856-TC; 80048; 80053; 81003; 82962; 83735; 84100; 84443; 85025; 87086; 87186; 93005; 93010; 97116-GP; 97161-GP; 99285-25; G0378

== ENCOUNTER 2024-04-06 15:52 | Emergency (ER) | payer OTHER ==
[2024-04-06 16:39] VITALS: BP 112/67; PULSE 73; RESP 18; TEMP 97.9; BMI 25.7
[2024-04-06] MEDS: KETOROLAC TROMETHAMINE 30 MG/1 ML VIAL IM ONE ×2 (17:21→17:53)
[2024-04-06] MEDS ORDERED: METHOCARBAMOL 500 MG TABLET ONE (17:37)
[2024-04-06] MEDS ORDERED: KETOROLAC TROMETHAMINE 15 MG/ML VIAL ONE (17:38)
[2024-04-06] MEDS ORDERED: LIDOCAINE 4% PATCH TP ONE (17:38)
[2024-04-06] MEDS ORDERED: ACETAMINOPHEN 500 MG TABLET (FP) ONE (17:40)
[2024-04-06] MEDS: METHOCARBAMOL 500 MG TABLET PO ONE (17:53)
[2024-04-06] MEDS: ACETAMINOPHEN 500 MG TABLET (FP) PO ONE ×2 (17:53→17:54)
[2024-04-06] MEDS: LIDOCAINE 4% PATCH TP ONE (17:53)
[2024-04-06] MEDS: LIDOCAINE PATCH REMOVAL MC SCH (22:30)
== END 2024-04-07 01:15 | disposition home or self-care (01) ==
LOC: JER 15:52
PROC: 3E0133Z Introduction of Anti-inflammatory into Subcutaneous Tissue, Percutaneous Approach (ICD-10-PCS; principal; 2024-04-06)
DX: M25.552 Pain in left hip (principal); M79.605 Pain in left leg; G57.02 Lesion of sciatic nerve, left lower limb
CPT/HCPCS: 73502-TC-LT-FY; 99284-25